=== PATIENT | female | born 1990 | race Caucasian/White ===

== ENCOUNTER → 2017-07-18 10:30 | Outpatient (CLI) | payer MEDICAID | END | disposition home or self-care (01) | LOC: D.US 10:30 | DX: N64.89 Other specified disorders of breast (principal) ==

== ENCOUNTER → 2017-07-20 08:54 | Outpatient (CLI) | payer MEDICAID | END | disposition home or self-care (01) | LOC: D.US 08:30 | DX: N64.89 Other specified disorders of breast (principal) ==

== ENCOUNTER → 2017-10-19 13:41 | Outpatient (CLI) | payer MEDICAID | END | disposition home or self-care (01) | LOC: D.LABREF 13:41 | DX: N61.1 Abscess of the breast and nipple (principal) ==